=== PATIENT | female | born 1990 | race Caucasian/White ===

== ENCOUNTER → 2016-09-15 | Emergency (ER) | payer OTHER ==
[~2016-09-15] VITALS: Ht 157.5 cm; Wt 68.0 kg
== END | disposition home or self-care (01) ==
LOC: CED 10:43
DX: L50.0 Allergic urticaria (principal)
CPT/HCPCS: 99283; J1100

== ENCOUNTER 2016-09-19 09:22 | Emergency (ER) | payer OTHER ==
[~2016-09-19] VITALS: Ht 157.5 cm; Wt 68.0 kg
== END 2016-09-19 11:27 | disposition home or self-care (01) ==
LOC: CED 09:22
DX: T78.40XA Allergy, unspecified, initial encounter (principal); X58.XXXA Exposure to other specified factors, initial encounter
CPT/HCPCS: 36415; 96372; 99283; J1100